=== PATIENT | female | born 1975 | race Two or more races ===

== ENCOUNTER 2017-12-02 14:38 | Day surgery (SDC) | payer BC ==
[2017-12-02] MEDS ORDERED: SOD CHLORIDE 0.9% 1,000 ML IV (15:00)
[2017-12-02] MEDS ORDERED: CEFAZOLIN 2 GM/50 ML (PMX) 50 ML IVPB (15:00)
[2017-12-02] MEDS ORDERED: MEPERIDINE 25 MG INJ IV (17:30)
[2017-12-02] MEDS ORDERED: ONDANSETRON 4 MG INJ IV ×2 (17:30→19:00)
[2017-12-02] MEDS ORDERED: FENTAnyl 50 MCG/ML VIAL IV ×3 (17:30)
[2017-12-02] MEDS ORDERED: OXYCODONE/ACETAMINOPHEN (5/325) TAB PO (17:30)
[2017-12-02] MEDS ORDERED: HYDROmorphONE (0.2 MG/ML) 10ML SYG IV ×3 (17:30)
[2017-12-02] MEDS ORDERED: DIPHENHYDRAMINE 50 MG INJ IV (17:30)
[2017-12-02] MEDS ORDERED: PROCHLORPERAZINE 10 MG INJ IV (17:30)
[2017-12-02] MEDS ORDERED: MIDAZOLAM 1 MG/ML 2 ML INJ (17:47)
[2017-12-02] MEDS ORDERED: FENTAnyl 50 MCG/ML VIAL (17:47)
[2017-12-02] MEDS ORDERED: LIDOCAINE 2% (SDV) 5 ML INJ (18:06)
[2017-12-02] MEDS ORDERED: FAMOTIDINE 20 MG INJ (18:06)
[2017-12-02] MEDS ORDERED: PROPOFOL 20 ML (18:06)
[2017-12-02] MEDS ORDERED: ONDANSETRON 4 MG INJ (18:06)
[2017-12-02] MEDS ORDERED: DEXAMETHASONE 4 MG/ML 1 ML INJ (18:06)
[2017-12-02] MEDS ORDERED: CEFAZOLIN 1 GM INJ (18:08)
[2017-12-02] MEDS: BUPIVACAINE 0.25%/EPI (SDV) 30 ML INJ (18:12)
[2017-12-02] MEDS ORDERED: EPHEDrine SULFATE 50 MG/5 ML SYG (18:40)
[2017-12-02] MEDS ORDERED: KETOROLAC 30 MG INJ IV (19:00)
[2017-12-02] MEDS ORDERED: IBUPROFEN 600 MG TAB PO (19:00)
== END 2017-12-02 19:50 | disposition home or self-care (01) ==
LOC: SDS 14:38
DX: D17.0 Benign lipomatous neoplasm of skin and subcutaneous tissue of head, face and neck (principal); L72.0 Epidermal cyst
CPT/HCPCS: 21555; 88307